=== PATIENT | male | born 1950 | race Caucasian/White ===

== ENCOUNTER 2024-05-29 11:49 | Inpatient (IN) | payer OTHER ==
[2024-05-29] MEDS ORDERED: MORPHINE 2 MG/ML SYR IV PRN (13:02)
[2024-05-29] MEDS ORDERED: ONDANSETRON 4 MG/2 ML VIAL IV PRN (13:02)
[2024-05-29] MEDS: METOPROLOL TAR 25 MG TAB PO ONE (13:36)
[2024-05-29] MEDS: NA CHLORIDE 0.9% 1,000 ML IV SCH (13:36)
[2024-05-29 14:18] LABS: Absolute Basophils 0.2 K/uL (0-0.5); Absolute Lymphocytes (CBC) 0.4 K/uL (0.7-4.9); Absolute Monocytes 1.2 K/uL (0.1-1.3); Absolute Neutrophil 15.3 K/uL (1.8-8.0); Basophils % 1.1 % (0-1.3); Eosinophils % 0.1 % (0-4.4); Hemoglobin 13.7 g/dL (13.6-17.9); Lymphocytes % 2.3 % (15.3-44.8); MCHC 32.6 g/dL (32.0-36.0); MCV 94.9 fL (80-100); MPV 9.9 fL (7.6-11.3); Neutrophils % 89.5 % (41.7-73.7); Nucleated Red Blood Cells % 0.2 % (0-0); Platelets 147 thou/uL (152-406); RBC Red Blood Cell Count 4.42 M/uL (4.33-5.43); Red Cell Distribution Width 14.2 % (12.1-15.2)
[2024-05-29 14:37] LABS: Albumin 3.2 g/dL (3.4-5.0); Albumin/Globulin Ratio 0.9 (1.1-1.8); Anion Gap 10.9 mEq/L (5.0-15.0); Bilirubin Total 1.9 mg/dL (0.2-1.0); Globulin 3.6 g/dL (2.3-3.5); Potassium 3.9 mEq/L (3.5-5.1); Protein, Total 6.8 g/dL (6.4-8.2); Troponin High Sensitivity 10.6 pg/mL (<58.9)
[2024-05-29 14:58] LABS: Blood Morphology Comment NOT SEEN (NOT SEEN); Platelet Estimate ADEQ; Platelets Clumped NOTED; White Blood Cell Scan OK (OK)
[2024-05-29] MEDS: DIGOXIN 0.25 MG/ML AMP IV SCH ×2 (16:08→22:25)
[2024-05-29] MEDS: ACETAMINOPHEN 500 MG TAB PO PRN (17:01)
[2024-05-29] MEDS: FUROSEMIDE 20 MG/ 2ML VIAL IV SCH (17:03)
[2024-05-29] MEDS: ALBUMIN HUMAN 25% 50 ML IV ONE (17:03)
[2024-05-29] MEDS: METOPROLOL TAR 50 MG TAB PO SCH (17:39)
[2024-05-29 17:42] LABS: Specific Gravity 1.015 (1.005-1.030); Sqamous Epithelial None Seen /HPF (None Seen); Urine Bacteria None Seen /HPF (<20); Urine Bilirubin NEGATIVE (Negative); Urine Blood Trace (Negative); Urine Clarity Turbid (Clear); Urine Color Light-Yellow (Yellow); Urine Crystals Unidentified Few /HPF (None Seen); Urine Culture Reflex Order REFLEXED; Urine Glucose NEGATIVE (Negative); Urine Ketones NEGATIVE (Negative); Urine Micro Reflex YN NO BILL MICROSCOPIC; Urine Mucus Slight /HPF (None Seen); Urine Nitrite NEGATIVE (Negative); Urine Protein NEGATIVE (Negative); Urine Urobilinogen Normal (Normal); Urine WBC 20-50 /HPF (<5); Urine WBC Clump Rare /HPF (None Seen); Urine Yeast (Budding) Occasional /HPF (None Seen)
[2024-05-29] MEDS ORDERED: METOPROLOL TAR 25 MG TAB PO SCH (18:00)
[2024-05-29] MEDS: CEFTRIAXONE 1,000 MG in NA CHLORIDE 0.9% 50 ML IVPB ONE (20:20)
[2024-05-29] MEDS: APIXABAN 5 MG TABLET PO SCH (20:20)
[2024-05-30 07:06] LABS: Absolute Basophils 0.1 K/uL (0-0.5); Absolute Lymphocytes (CBC) 0.8 K/uL (0.7-4.9); Absolute Monocytes 1.3 K/uL (0.1-1.3); Absolute Neutrophil 15.7 K/uL (1.8-8.0); Basophils % 0.4 % (0-1.3); Eosinophils % 0.1 % (0-4.4); Hematocrit 37.4 % (39.6-49.0); Hemoglobin 12.3 g/dL (13.6-17.9); Lymphocytes % 4.5 % (15.3-44.8); MCH 31.3 pg (27.0-35.0); MCHC 32.8 g/dL (32.0-36.0); MCV 95.2 fL (80-100); MPV 9.9 fL (7.6-11.3); Monocytes % 7.1 % (3.3-12.3); Neutrophils % 87.9 % (41.7-73.7); Platelets 137 thou/uL (152-406); RBC Red Blood Cell Count 3.92 M/uL (4.33-5.43); Red Cell Distribution Width 14.3 % (12.1-15.2)
[2024-05-30] MEDS: CEFTRIAXONE 1,000 MG in NA CHLORIDE 0.9% 50 ML IVPB SCH (08:38)
[2024-05-30 09:27] LABS: Albumin 2.9 g/dL (3.4-5.0); Albumin/Globulin Ratio 0.9 (1.1-1.8); Anion Gap 7.7 mEq/L (5.0-15.0); Bilirubin Total 1.7 mg/dL (0.2-1.0); Globulin 3.2 g/dL (2.3-3.5); Potassium 3.7 mEq/L (3.5-5.1); Protein, Total 6.1 g/dL (6.4-8.2); Troponin High Sensitivity 11.9 pg/mL (<58.9)
--- NOTE | 2024-05-30 10:48 | P.CNS ---
Date of Consult: 05/30/24 Chief Complaint: weakness History of Present Illness: Patient is Moribdly obese with PMH of atrial fibrillation, presented with worsening SOB, LERMA and palpiations, denies chest pain, no syncope. Allergies adhesive Allergy (Verified 05/29/24 12:15) Hives/Rash codeine Allergy (Verified 05/29/24 12:15) Nausea/Vomiting Home medications list reviewed: Yes Home Medications: Oregamax 1 cap PO DAILY 07/05/16 Sinus Support Ef 1 cap PO DAILY 07/05/16 Acetaminophen [Tylenol*] 650 mg PO Q4H PRN #0 tab 07/12/16 Vitamin B Complex [B Complex] 1 each PO DAILY 05/29/24 - Past Medical/Surgical History Diabetic: No -: Hepatitis C -: Inguinal Hernia -: Skin Cancer -: L Total knee 07/01/16 -: Cataracts sx -: Inguinal Hernia Repair 2006 or 2007 -: Skin cancer removal from nose - Family History Mother History Unknown: Yes Notes: of Kidney failure Father History Unknown: Yes Notes: of [place], Hepatitis - Social History Alcohol use: No CD- Drugs: No Caffeine use: Yes Place of Residence: Home Review of Systems 10-point ROS is otherwise unremarkable Physical Examination Temp Pulse Resp BP Pulse Ox 97.1 F 84 18 131/60 94 05/30/24 04:00 05/30/24 08:39 05/30/24 04:00 05/30/24 08:39 05/30/24 04:00 General: Alert, In no apparent distress HEENT: Atraumatic, PERRLA, Mucous membr. moist/pink, EOMI, Sclerae nonicteric Neck: Supple, 2+ carotid pulse no bruit, No LAD, Without JVD or thyroid abnormality Respiratory: Clear to auscultation bilaterally, Normal air movement Cardiovascular: Regular rate/rhythm, Normal S1 S2 Gastrointestinal: Normal bowel sounds, No tenderness Musculoskeletal: No tenderness Integumentary: No rashes Neurological: Normal gait, Normal speech, Normal tone, Normal affect Lymphatics: No axilla or inguinal lymphadenopathy Laboratory Data (last 24 hrs) 05/30/24 05/30/24 05/29/24 08:48 06:45 13:30 WBC 17.80 H Hgb 12.3 L D Hct 37.4 L Plt Count 137 L Sodium 138 140 Potassium 3.7 3.9 BUN 16 18 Creatinine 0.73 0.73 Glucose 119 H 132 H Total Bilirubin 1.7 H 1.9 H AST 14 L 15 ALT 17 17 Alkaline Phosphatase 39 L 48 05/29/24 13:30 WBC 17.10 H Hgb 13.7 Hct 42.0 Plt Count 147 L Sodium Potassium BUN Creatinine Glucose Total Bilirubin AST ALT Alkaline Phosphatase - Problems (1) Atrial fibrillation Current Visit: Yes Status: Acute Plan: Patient report history of AF back in 2007 that required BHANU DCCV, he has not been on medications since then - Sotalol 80 mg po BID (EKG after 3rd dose to check on QTc) - continue lopressor 50 mg po BID - Continue Eliquis 5 mg po BID Get Echo (2) Swelling of lower extremity Current Visit: Yes Status: Acute Plan: Patient is morbidly obese so it is hard to assess volume status - Increase Lasix to 40 mg IV q 8 hours - add Aldactone 25 mg daily - very important to monitor input and output and electrolytes.
[2024-05-30 12:35] LABS: White Blood Cell Scan OK (OK)
[2024-05-30 12:36] LABS: Blood Morphology Comment NOT SEEN (NOT SEEN); Platelet Estimate DECR
[2024-05-30] MEDS: SOTALOL HCL 80 MG TAB PO ONE (15:53)
[2024-05-30] MEDS: SOTALOL HCL 80 MG TAB PO SCH (17:57)
[2024-05-30] MEDS: MELATONIN 5 MG TABLET PO PRN (23:17)
[2024-05-31 07:48] LABS: Absolute Basophils 0.1 K/uL (0-0.5); Absolute Eosinophils 0.1 K/uL (0-0.5); Absolute Lymphocytes (CBC) 0.9 K/uL (0.7-4.9); Absolute Monocytes 1.2 K/uL (0.1-1.3); Absolute Neutrophil 9.9 K/uL (1.8-8.0); Basophils % 0.5 % (0-1.3); Eosinophils % 0.9 % (0-4.4); Hematocrit 39.6 % (39.6-49.0); Hemoglobin 13.2 g/dL (13.6-17.9); Lymphocytes % 7.3 % (15.3-44.8); MCH 31.4 pg (27.0-35.0); MCHC 33.3 g/dL (32.0-36.0); MCV 94.2 fL (80-100); MPV 9.4 fL (7.6-11.3); Monocytes % 9.6 % (3.3-12.3); Neutrophils % 81.7 % (41.7-73.7); Platelets 146 thou/uL (152-406); Red Cell Distribution Width 13.8 % (12.1-15.2)
[2024-05-31] MEDS: CEFDINIR 300 MG CAP PO SCH (17:12)
--- NOTE | 2024-06-01 10:39 | P.HP ---
Certification for Inpatient Patient admitted to: Inpatient With expected LOS: >2 Midnights Patient will require the following post-hospital care: None Practitioner: I am a practitioner with admitting privileges, knowledge of patient current condition, hospital course, and medical plan of care. Services: Services provided to patient in accordance with Admission requirements found in Title 42 Section 412.3 of the Code of Federal Regulations Patient History Date of Service: 05/29/24 Reason for admission: UTI with sepsis/ AFib RVR History of Present Illness: patient is a 74-year-old gentleman who was transferred from [facility] with AFib RVR. Patient also with history of UTI with sepsis. Patient has been running fevers of 102. patient states he has seen Dr. Chen in [place] in the past for his atrial fibrillation. Patient has been cardioverted. Patient has not taken any anti rhythmic since then. He states that he never followed back up with Cardiology as he felt like he did not need too because he did not have AFib. Otherwise patient denies any prostate issues. He denies any issue with voiding. He does not have any dysuria. Patient overall is doing better right now. Patient will be started on antiarrhythmics and IV antibiotics. Patient will be admitted for inpatient hospitalization. Patient also with morbid obesity with a BMI greater than 60. his weight is over 500. He would benefit from bariatric follow-up. Allergies adhesive Allergy (Verified 05/29/24 12:15) Hives/Rash codeine Allergy (Verified 05/29/24 12:15) Nausea/Vomiting Home Medications: Oregamax 1 cap PO DAILY 07/05/16 Sinus Support Ef 1 cap PO DAILY 07/05/16 Acetaminophen [Tylenol*] 650 mg PO Q4H PRN #0 tab 07/12/16 Vitamin B Complex [B Complex] 1 each PO DAILY 05/29/24 - Past Medical/Surgical History Has patient received pneumonia vaccine in the past: No Diabetic: No -: Hepatitis C -: Inguinal Hernia -: Skin Cancer -: L Total knee 07/01/16 -: Cataracts sx -: Inguinal Hernia Repair 2006 or 2007 -: Skin cancer removal from nose - Family History Mother History Unknown: Yes Notes: of Kidney failure Father History Unknown: Yes Notes: of [place], Hepatitis - Social History Smoking Status: Former smoker Alcohol use: No CD- Drugs: No Caffeine use: Yes Place of Residence: Home Review of Systems 10-point ROS is otherwise unremarkable Physical Examination - Vital Signs Temperature: 98.3 F Blood Pressure: 130/70 Pulse: 84 Respirations: 16 Pulse Ox (%): 90 - Physical Exam General: Alert, In no apparent distress, Oriented x3, Obese HEENT: Atraumatic, PERRLA, Mucous membr. moist/pink, EOMI, Sclerae nonicteric Neck: Supple, 2+ carotid pulse no bruit, No LAD, Without JVD or thyroid abnormality Respiratory: Clear to auscultation bilaterally, Normal air movement Cardiovascular: Irregular heart rate/rhythm, Systolic murmur Gastrointestinal: Normal bowel sounds, Soft and benign, Non-distended, No tenderness Musculoskeletal: No clubbing, No swelling, No tenderness Integumentary: No rashes Neurological: Normal gait, Normal speech, Normal strength at 5/5 x4 extr, Normal tone, Sensation intact, Cranial nerves 3-12 intact, Normal affect Lymphatics: No axilla or inguinal lymphadenopathy - Studies Microbiology Data (last 24 hrs): 05/29/24 17:25 Clean Catch Urine [place] Count - Final No growth. 05/29/24 17:25 Clean Catch Urine - Final No growth. Assessment & Plan - Problems (Diagnosis) (1) Sepsis secondary to UTI Current Visit: Yes Status: Acute (2) Atrial fibrillation with rapid ventricular response Current Visit: Yes Status: Acute (3) Morbid (severe) obesity due to excess calories Current Visit: Yes Status: Acute (4) Lower extremity edema Current Visit: Yes Status: Acute - Plan Plan: 1. Continue with IV antibiotics 2. Start sotalol 3. Gentle hydration 4. Outpatient bariatric follow-up 5. She await urine culture results 6. Outpatient Urology follow-up 7. GI/ DVT prophylaxis Discharge Plan: Home Plan to discharge in: Greater than 2 days - Advance Directives Does patient have a Living Will: No Does patient have a Durable POA for Healthcare: No - Code Status/Comfort Care Code Status Assessed: Yes Code Status: Full Code Critical Care: No Time Spent Managing PTS Care (In Minutes): 55
--- NOTE | 2024-06-01 10:41 | P.PN ---
Subjective Date of Service: 05/30/24 patient is improving. Clinical symptoms better. Awaiting Cardiology input and echo pending. Review of Systems 10-point ROS is otherwise unremarkable Physical Examination - Vital Signs Temperature: 98.3 F Blood Pressure: 130/70 Pulse: 84 Respirations: 16 Pulse Ox (%): 90 - Physical Exam General: Alert, In no apparent distress, Oriented x3 Respiratory: Clear to auscultation bilaterally, Normal air movement Cardiovascular: Normal S1 S2, No murmurs, Irregular heart rate/rhythm Gastrointestinal: Normal bowel sounds, Soft and benign, Non-distended, No tenderness Musculoskeletal: No clubbing, No swelling, No tenderness Integumentary: No rashes Neurological: Normal speech, Normal strength at 5/5 x4 extr, Normal tone, Sensa tion intact, Cranial nerves 3-12 intact - Studies Microbiology Data (last 24 hrs): 05/29/24 17:25 Clean Catch Urine [place] Count - Final No growth. 05/29/24 17:25 Clean Catch Urine - Final No growth. Medications List Reviewed: Yes Assessment & Plan - Problems (Diagnosis) (1) Sepsis secondary to UTI Current Visit: Yes Status: Acute (2) Atrial fibrillation with rapid ventricular response Current Visit: Yes Status: Acute (3) Morbid (severe) obesity due to excess calories Current Visit: Yes Status: Acute (4) Lower extremity edema Current Visit: Yes Status: Acute - Plan Continue with plan of care as mentioned below: 1. Continue with IV antibiotics 2. Start sotalol 3. Gentle hydration 4. Outpatient bariatric follow-up 5. She await urine culture results 6. Outpatient Urology follow-up 7. GI/ DVT prophylaxis Discharge Plan: Home Plan to discharge in: Greater than 2 days - Advance Directives Does patient have a Living Will: No Does patient have a Durable POA for Healthcare: No - Code Status/Comfort Care Code Status: Full Code Critical Care: No Time Spent Managing PTS Care (In Minutes): 30
--- NOTE | 2024-06-01 10:43 | P.PN ---
Subjective Date of Service: 05/31/24 patient is improving. Clinical symptoms better. Awaiting Cardiology input and echo pending. Review of Systems 10-point ROS is otherwise unremarkable Physical Examination - Vital Signs Temperature: 98.3 F Blood Pressure: 130/70 Pulse: 84 Respirations: 16 Pulse Ox (%): 90 - Physical Exam General: Alert, In no apparent distress, Oriented x3 Respiratory: Clear to auscultation bilaterally, Normal air movement Cardiovascular: No murmurs, Irregular heart rate/rhythm Gastrointestinal: Normal bowel sounds, Soft and benign, Non-distended, No tenderness Musculoskeletal: No clubbing, No swelling, No tenderness Neurological: Sensation intact, Cranial nerves 3-12 intact - Studies Microbiology Data (last 24 hrs): 05/29/24 17:25 Clean Catch Urine [place] Count - Final No growth. 05/29/24 17:25 Clean Catch Urine - Final No growth. Medications List Reviewed: Yes Assessment & Plan - Problems (Diagnosis) (1) Sepsis secondary to UTI Current Visit: Yes Status: Acute (2) Atrial fibrillation with rapid ventricular response Current Visit: Yes Status: Acute (3) Morbid (severe) obesity due to excess calories Current Visit: Yes Status: Acute (4) Lower extremity edema Current Visit: Yes Status: Acute - Plan Continue with plan of care as mentioned below: 1. Continue with IV antibiotics 2. Start sotalol 3. Gentle hydration 4. Outpatient bariatric follow-up 5. She await urine culture results 6. Outpatient Urology follow-up 7. GI/ DVT prophylaxis - Advance Directives Does patient have a Living Will: No Does patient have a Durable POA for Healthcare: No - Code Status/Comfort Care Code Status: Full Code Critical Care: No
[2024-06-01 11:15] VITALS: O2SAT 92
--- NOTE | 2024-06-01 11:47 | P.DS ---
Admission Date: 05/29/24 Discharge Date: 06/01/24 Disposition: ROUTINE DISCHARGE Discharge Condition: GOOD Reason for Admission: UTI with sepsis/ AFib RVR Brief History of Present Illness: patient is a 74-year-old gentleman who was transferred from [facility] with AFib RVR. Patient also with history of UTI with sepsis. Patient has been running fevers of 102. patient states he has seen Dr. Chen in [place] in the past for his atrial fibrillation. Patient has been cardioverted. Patient has not taken any anti rhythmic since then. He states that he never followed back up with Cardiology as he felt like he did not need too because he did not have AFib. Otherwise patient denies any prostate issues. He denies any issue with voiding. He does not have any dysuria. Patient overall is doing better right now. Patient will be started on antiarrhythmics and IV antibiotics. Patient will be admitted for inpatient hospitalization. Patient also with morbid obesity with a BMI greater than 60. his weight is over 500. He would benefit from bariatric follow-up. Hospital Course: Patient is a 74yo gentleman with past medical history of A. fib s/p cardioversion and morbid obesity who was transferred from [facility] with AFib RVR and sepsis 2/2 UTI. Of note, pt saw Dr. Chen in [place] for atrial fibrillation that resolved after cardioversion. Patient did not taken any anti-arrhythmic since then. During this admission, Cardiology evaluated pt and started Sotalol and Eliquis. Pt took 5 doses of sotalol before we discharged him. We continued rocephin for UTI and urine cx showed no growth. We discharged pt with Cefdinir. Pt was advised to lose weight. He was in NAD prior to discharge. Vital Signs/Physical Exam: Temp Pulse Resp BP Pulse Ox 98.3 F 84 16 130/70 90 L 06/01/24 10:42 06/01/24 10:42 06/01/24 10:42 06/01/24 10:42 06/01/24 10:42 Laboratory Data at Discharge: WBC 12.10 thou/uL (4.3-10.9) H 05/31/24 07:33 Hgb 13.2 g/dL (13.6-17.9) L 05/31/24 07:33 Hct 39.6 % (39.6-49.0) 05/31/24 07:33 Plt Count 146 thou/uL (152-406) L 05/31/24 07:33 Sodium 139 mEq/L (136-145) 05/31/24 07:33 Potassium 4.0 mEq/L (3.5-5.1) 05/31/24 07:33 BUN 22 mg/dL (7-18) H 05/31/24 07:33 Creatinine 0.80 mg/dL (0.70-1.30) 05/31/24 07:33 Glucose 92 mg/dL (74-106) 05/31/24 07:33 Total Bilirubin 1.7 mg/dL (0.2-1.0) H 05/30/24 08:48 AST 14 U/L (15-37) L 05/30/24 08:48 ALT 17 U/L (16-61) 05/30/24 08:48 Alkaline Phosphatase 39 U/L (45-117) L 05/30/24 08:48 Home Medications: Oregamax 1 cap PO DAILY 07/05/16 Sinus Support Ef 1 cap PO DAILY 07/05/16 Acetaminophen [Tylenol*] 650 mg PO Q4H PRN #0 tab 07/12/16 Vitamin B Complex [B Complex] 1 each PO DAILY 05/29/24 Apixaban [Eliquis] 5 mg PO BID 30 Days #60 tab 06/01/24 Cefdinir [Cefdinir*] 300 mg PO BIDWM 4 Days #8 cap 06/01/24 Sotalol HCl [Betapace*] 80 mg PO BID 6AM 6PM 30 Days #60 tab 06/01/24 New Medications: Sotalol HCl [Betapace*] 80 mg PO BID 6AM 6PM 30 Days #60 tab Cefdinir [Cefdinir*] 300 mg PO BIDWM 4 Days #8 cap Apixaban [Eliquis] 5 mg PO BID 30 Days #60 tab Physician Discharge Instructions: OK TO DC IV AND DC HOME FOLLOW-UP WITH PRIMARY CARE PROVIDER IN 1-2 WEEKS FOLLOW-UP WITH CARDIOLOGY IN 1-2 WEEKS RETURN TO THE ER IF symptoms worsen CALL DR. MEMBRENO AT [phone] IF ANY QUESTIONS REGARDING HOSPITAL STAY. PLEASE CALL THE FLOOR AT [phone] IF ANY MEDICATION OR NURSING QUESTIONS. Diet: AHA Activity: Ad francheska Followup: Saroj Alfonso MD [ACTIVE - CAN ADMIT] - 1-2 Weeks Gabriel Navarrete MD [Primary Care Provider] - 1-2 Weeks
[2024-06-01 12:28] VITALS: BP 152/67; TEMP 98
--- NOTE | 2024-06-01 13:37 | P.PN ---
Subjective Date of Service: 06/01/24 Chief Complaint: UTI with sepsis/ AFib RVR Subjective: No new changes, No C/O voiced, Tolerating diet, Ambulating, Improving Review of Systems 10-point ROS is otherwise unremarkable Physical Examination - Vital Signs Temperature: 98.0 F Blood Pressure: 152/67 Pulse: 80 Respirations: 17 Pulse Ox (%): 95 - Physical Exam General: Alert, In no apparent distress HEENT: Atraumatic, PERRLA, EOMI Neck: Supple, JVD not distended Respiratory: Clear to auscultation bilaterally, Normal air movement Cardiovascular: Irregular heart rate/rhythm Gastrointestinal: Normal bowel sounds, No tenderness Musculoskeletal: No tenderness Integumentary: No rashes Neurological: Normal speech, Normal tone, Normal affect Lymphatics: No axilla or inguinal lymphadenopathy - Studies Microbiology Data (last 24 hrs): 05/29/24 17:25 Clean Catch Urine [place] Count - Final No growth. 05/29/24 17:25 Clean Catch Urine - Final No growth. Medications List Reviewed: Yes Assessment And Plan - Current Problems (Diagnosis) (1) Atrial fibrillation Current Visit: Yes Status: Acute Plan: Patient report history of AF back in 2007 that required BHANU DCCV, he has not b een on medications since then - Sotalol 80 mg po BID - continue lopressor 25 mg po BID - Continue Eliquis 5 mg po BID (2) Swelling of lower extremity Current Visit: Yes Status: Acute Plan: Patient is morbidly obese so it is hard to assess volume status - switch to lasix 40 mg po BID - add Aldactone 25 mg daily - very important to monitor input and output and electrolytes.
[2024-06-01 15:51] VITALS: BMI 63.4
--- NOTE | 2024-06-02 12:21 | EKG ---
Test Date: 2024-05-31 Test Time: 17:44:40 Communication Specialist: CHUCHO MEASUREMENT RESULTS: Intervals: Rate: 70 CT: QRSD: 132 QT: 378 QTc: 408 [place]: P: CT: QRS: 25 T: -2 INTERPRETIVE STATEMENTS: Atrial fibrillation Right bundle branch block Abnormal ECG No previous ECG available for comparison Electronically Signed On 06-02-24 12:16:37 CDT by Saroj Alfonso
== END 2024-06-01 13:10 | disposition home or self-care (01) | DRG 872 ==
LOC: 4TH 11:49
PROVIDERS: ADMIT Hospitalist; ATTEND Hospitalist
DX: A41.9 Sepsis, unspecified organism (principal); Z68.44 Body mass index [BMI] 60.0-69.9, adult; N39.0 Urinary tract infection, site not specified; I48.91 Unspecified atrial fibrillation; E66.01 Morbid (severe) obesity due to excess calories; M79.89 Other specified soft tissue disorders; Z88.5 Allergy status to narcotic agent; Z79.01 Long term (current) use of anticoagulants; Z79.899 Other long term (current) drug therapy; Z87.891 Personal history of nicotine dependence; Z85.828 Personal history of other malignant neoplasm of skin
CPT/HCPCS: 36415; 80048; 80053; 81001; 82947; 84484; 85025; 87086; 87088; 93005; J0696; J1160; J1940; J7030; P9047